=== PATIENT | female | born 1945 | race Caucasian/White ===

== ENCOUNTER 2016-08-15 13:17 | Emergency (ER) | payer MEDICARE, OTHER ==
[~2016-08-15] VITALS: Ht 167.6 cm; Wt 101.0 kg
[2016-08-15 13:19] VITALS: BP 175/88; PULSE 88; RESP 17; TEMP 97.7; O2SAT 96
[2016-08-15] MEDS ORDERED: ESTR0.5T PO (13:38)
[2016-08-15] MEDS ORDERED: ALPR.5 PO (13:38)
--- NOTE | 2016-08-15 14:11 | PD ---
HPI Chief Complaint: Injury Time Seen by Provider: 13:40 Travel History International Travel<30 days: No Contact w/Intl Traveler<30days: No Traveled to known affect area: No History of Present Illness HPI 70-year-old female presents emergency department for evaluation of right knee pain. She reports approximately 3 weeks ago she was stepping up into an ambulance when she developed severe medial aspect knee pain. The pain has since improved until 2 days ago when the pain returned. Patient reports over 20 year history of intermittent right knee pain. Patient reports the pain is localized to the anterior medial aspect of the knee, worse with movement and flexion, relieved with rest, 6 out of 10 in severity. She denies numbness or tingling in the extremity, no lower extremity edema, no fever or chills. PFSH Past Medical History Narrative Medical Significant for hypertension and anxiety. Anxiety: Yes Hypertension: Yes ("WHITE COAT") Medical other: Yes (SCALET FEVER/TETUS) Tetanus Vaccination: > 5 Years Influenza Vaccination: No Past Surgical History Cholecystectomy: Yes Hysterectomy: Yes Tonsillectomy: Yes Social History Alcohol Use: No Tobacco Use: No Substance Use: No Allergies-Medications (Allergen,Severity, Reaction): Coded Allergies: Shellfish (Verified Allergy, Severe, Anaphylaxis, 08/15/16) Sulfites & Bisulfites (Verified Allergy, Severe, Anaphylaxis, 08/15/16) Aspirin (Verified Allergy, Intermediate, Anaphylaxis, 08/15/16) Tetanus Toxoid (Verified Allergy, Unknown, 08/15/16) Uncoded Allergies: ANTIHISTAMINES (Adverse Reaction, Intermediate, TACHYCARDIA, 08/15/16) Reported Meds & Prescriptions Reported Meds & Active Scripts Active Reported Xanax (Alprazolam) 0.5 Mg Tab 0.5 Mg PO DAILY PRN Estradiol 0.5 Mg Tab 0.5 Mg PO DAILY Review of Systems Except as stated in HPI: all other systems reviewed are Neg Physical Exam Narrative GENERAL: Well-nourished, well-developed patient. SKIN: Focused skin assessment warm/dry. No erythema or ecchymosis. HEAD: Normocephalic. EYES: No scleral icterus. No injection or drainage. NECK: Supple, trachea midline. No JVD or lymphadenopathy. CARDIOVASCULAR: Regular rate and rhythm without murmurs, gallops, or rubs. RESPIRATORY: Breath sounds equal bilaterally. No accessory muscle use. GASTROINTESTINAL: Abdomen soft, non-tender, nondistended. MUSCULOSKELETAL: No cyanosis, or edema. Right knee: Notably tender to the anterior medial aspect. No joint effusion. The joint is stable. BACK: Nontender without obvious deformity. No CVA tenderness. Data Data Last Documented VS Vital Signs Date Time Temp Pulse Resp B/P Pulse Ox O2 Delivery O2 Flow Rate FiO2 08/15/16 13:30 Room Air 08/15/16 13:19 97.7 88 17 175/88 96 Orders Knee, Complete (4vws) (08/15/16 ) Splint Or Brace Apply/Monitor (08/15/16 14:35) [facility] Medical Decision Making Medical Screen Exam Complete: Yes Emergency Medical Condition: Yes Medical Record Reviewed: Yes Differential Diagnosis Knee pain caused by sprain/strain, arthritis, meniscal injury Narrative Course 70-year-old female presents emergency department for evaluation of right knee pain. X-ray pending X-ray of the right knee: Negative for acute fracture. Osteoarthritic changes noted. Small suprapatellar effusion. Diagnostic findings discussed with patient. She was instructed to follow up with primary care or orthopedic for possible MRI of the right knee if it doesn' t improve with short-term immobilization. Patient is in agreement to this plan. Diagnosis Primary Impression: Knee sprain Qualified Code: S83.421A - Sprain of lateral collateral ligament of right knee , initial encounter Referrals: Primary Care Physician Additional Instructions: With the Raffi wrap as instructed. Avoid excessive bending, heavy lifting or prolonged walking while the knee is painful. Make an appoint for follow-up with her primary care physician for reevaluation. Scripts Acetaminophen-Codeine (Tylenol-Codeine #3)300-30 mg Tab1 Tab PO Q6HR PRN (PAIN) #8 TAB Ref 0 Prov:Tasia Wilkinson 08/15/16 Disposition: 01 DISCHARGE HOME Condition: Stable Tasia Wilkinosn Aug 15, 2016 14:11
--- NOTE | 2016-08-15 14:25 | RADHPO ---
EXAM DATE/TIME: 08/15/2016 14:05 [facility] COMPARISON: No previous studies available for comparison. INDICATIONS : Right knee pain post moving family member with hover lift. MEDICAL HISTORY : Hypertension. SURGICAL HISTORY : Tonsillectomy. Cholecystectomy. Hysterectomy. ENCOUNTER: Initial ACUITY: 3 days PAIN SCORE: 8/10 LOCATION: Right knee FINDINGS: Four view examination of the right knee demonstrates no evidence of fracture or dislocation. There is loss of the medial tibiofemoral joint space characteristic of some degree of osteoarthritis. A very small suprapatellar effusion is present just posterior to the quadriceps tendon. CONCLUSION: 1. Mild osteoarthritic changes with no acute fracture. 2. Very small suprapatellar effusion. Travis Marks MD on August 15, 2016 at 14:21 Board Certified Radiologist. This report was verified electronically.
[2016-08-15] MEDS ORDERED: TYLETAB34 PO (14:51)
== END 2016-08-15 15:12 | disposition home or self-care (01) ==
LOC: PHEFT 13:17
DX: S83.421A Sprain of lateral collateral ligament of right knee, initial encounter (principal); X50.0XXA Overexertion from strenuous movement or load, initial encounter; I10 Essential (primary) hypertension
CPT/HCPCS: 73564; 99283